=== PATIENT | male | born 1980 | race Caucasian/White ===

== ENCOUNTER 2018-03-12 15:44 | Emergency (ER) | payer OTHER ==
[~2018-03-12] VITALS: Ht 188 cm; Wt 104.3 kg
[2018-03-12 15:52] VITALS: BP 124/87
== END 2018-03-12 17:22 | disposition left against medical advice (07) ==
LOC: ER 15:44
DX: H57.11 Ocular pain, right eye (principal); H53.141 Visual discomfort, right eye; F17.210 Nicotine dependence, cigarettes, uncomplicated; Z98.52 Vasectomy status